=== PATIENT | female | born 1955 | race Caucasian/White ===

== ENCOUNTER 2021-01-17 11:18 | Inpatient (IN) | payer OTHER, MEDICAID, SELFPAY ==
[~2021-01-17] VITALS: Ht 154.9 cm; Wt 45.8 kg
[2021-01-17 11:20] VITALS: BP_SYST 125
[2021-01-17 12:10] LABS: BASOPHILS % (AUTO) 0.2 % (0.0-2.0); EOSINOPHILS % (AUTO) 0.1 % (0.0-4.0); HEMATOCRIT 42.9 % (36-48); HEMOGLOBIN 14.7 g/dL (12.0-16.0); LYMPHOCYTES % (AUTO) 6.3 % (20.5-51.5); MEAN CORPUSCULAR HEMOGLOBIN 33 pg (27-31); MEAN CORPUSCULAR HGB CONC 34 % (32-36); MEAN CORPUSCULAR VOLUME 96 fL (79.0-98.0); MONOCYTES # (AUTO) 1.8 K/uL (0.0-1.0); MONOCYTES % (AUTO) 11.2 % (1.7-9.3); NEUTROPHILS # (AUTO) 12.9 K/uL (1.8-7.7); NEUTROPHILS % (AUTO) 82.2 % (40.0-70.0); PLATELET COUNT (AUTO) 239 K/uL (130-430); RED BLOOD CELL COUNT(AUTO) 4.45 MIL/uL (4.2-6.2); RED CELL DISTRIBUTION WIDTH 14.3 % (9.0-15.0); WHITE BLOOD COUNT (AUTO) 15.7 K/uL (4.8-10.8)
[2021-01-17 12:13] LABS: BILIRUBIN,URINE NEGATIVE (NEGATIVE); BLOOD, URINE 2+ (NEGATIVE); CLARITY/URINE SL CLOUDY (CLEAR); COLOR,URINE YELLOW (YELLOW); GLUCOSE,URINE NEGATIVE (NEGATIVE); KETONES,URINE NEGATIVE (NEGATIVE); LEUKOCYTE ESTERASE ,URINE 3+ (NEGATIVE); NITRITE, URINE POSITIVE (NEGATIVE); PROTEIN URINE 2+ (NEGATIVE); UROBILINOGEN,URINE 0.2 (0.2-1.0)
[2021-01-17 12:26] LABS: CALCIUM 9.2 mg/dL (8.4-11.0)
[2021-01-17 12:30] LABS: ALBUMIN 3.7 g/dL (3.4-4.8); TOTAL BILIRUBIN 0.7 mg/dL (0.0-1.0)
[2021-01-17 12:34] LABS: POTASSIUM 2.7 mmol/L (3.5-5.1)
[2021-01-17 12:43] LABS: WBC,URINE 50-80 /HPF (0-3)
[2021-01-17 12:44] LABS: BACTERIA,URINE FEW /HPF (None Seen)
[2021-01-17] MEDS ORDERED: ONDANSETRON HCL 4 MG/2 ML VIAL IVP PRN (13:00)
[2021-01-17] MEDS ORDERED: ACETAMINOPHEN 325 MG TABLET PO PRN (13:00)
[2021-01-17] MEDS ORDERED: cefTRIAXone 1 GM in D5W 50 ML IV ONE (13:00)
[2021-01-17] MEDS ORDERED: KCL 20 mEq in 100 mL (PREMIX) 100 ML IV ONE (13:15)
[2021-01-17] MEDS ORDERED: MORPHINE 2 MG/ML INJ. SYRINGE IVP ONE (13:15)
[2021-01-17] MEDS ORDERED: POTASSIUM CHLORIDE 20 MEQ/PKT PACKET PO ONE (13:15)
[2021-01-17] MEDS ORDERED: cefTRIAXone 1 GM IVPB PREMIX 50 ML IV SCH (14:00)
[2021-01-17] MEDS: NORMAL SALINE 5 ML DISP.SYRIN IVF SCH ×4 (14:02→22:13)
[2021-01-17] MEDS: HYDROcodone/ACETAMIN 10-325 MG TAB PO PRN (19:57)
[2021-01-17] MEDS ORDERED: HYDR25TA4 PO (20:19)
[2021-01-17] MEDS ORDERED: CHOL200075 PO (20:19)
[2021-01-17] MEDS ORDERED: FLUT30CR (20:19)
[2021-01-17] MEDS ORDERED: PRAVASTATIN 20 MG PO (20:19)
[2021-01-17] MEDS ORDERED: MULT-1089 PO (20:19)
[2021-01-17] MEDS ORDERED: MEDI473O PO (20:19)
[2021-01-17] MEDS ORDERED: MAGN400T10 PO (20:19)
[2021-01-17] MEDS ORDERED: [UNRECOGNIZED DRUG - CODE] PO (20:19)
[2021-01-17] MEDS ORDERED: ASPI-1155 PO (20:19)
[2021-01-17] MEDS ORDERED: ASCO-420 PO (20:19)
[2021-01-17] MEDS ORDERED: CETI10CA PO (20:19)
[2021-01-17] MEDS ORDERED: UBID400C6 PO (20:19)
[2021-01-17 23:09] VITALS: BP_SYST 137
[2021-01-18 02:15] VITALS: BP_SYST 132
[2021-01-18] MEDS: HYDROcodone/ACETAMIN 10-325 MG TAB PO PRN ×4 (04:39→20:56)
[2021-01-18] MEDS: NORMAL SALINE 5 ML DISP.SYRIN IVF SCH ×6 (05:40→20:58)
[2021-01-18 07:50] LABS: BASOPHILS % (AUTO) 0.3 % (0.0-2.0); EOSINOPHILS % (AUTO) 0.2 % (0.0-4.0); HEMATOCRIT 35.1 % (36-48); LYMPHOCYTES # (AUTO) 1.1 K/uL (1.0-5.5); LYMPHOCYTES % (AUTO) 8.6 % (20.5-51.5); MEAN CORPUSCULAR HEMOGLOBIN 33 pg (27-31); MEAN CORPUSCULAR HGB CONC 34 % (32-36); MEAN CORPUSCULAR VOLUME 97 fL (79.0-98.0); MONOCYTES # (AUTO) 2.2 K/uL (0.0-1.0); MONOCYTES % (AUTO) 16.7 % (1.7-9.3); NEUTROPHILS # (AUTO) 9.8 K/uL (1.8-7.7); NEUTROPHILS % (AUTO) 74.2 % (40.0-70.0); PLATELET COUNT (AUTO) 220 K/uL (130-430); RED BLOOD CELL COUNT(AUTO) 3.62 MIL/uL (4.2-6.2); RED CELL DISTRIBUTION WIDTH 14.6 % (9.0-15.0); WHITE BLOOD COUNT (AUTO) 13.3 K/uL (4.8-10.8)
[2021-01-18 08:00] VITALS: BP_SYST 83
[2021-01-18 08:23] LABS: CALCIUM 8.4 mg/dL (8.4-11.0); CREATININE 0.83 mg/dL (0.55-1.30)
[2021-01-18 08:38] LABS: POTASSIUM 2.9 mmol/L (3.5-5.1)
[2021-01-18] MEDS ORDERED: POTASSIUM CHLORIDE 40 MEQ in NS 250 ML IV ONE (09:00)
[2021-01-18] MEDS: D5/0.45 NS 1,000 ML IV SCH ×2 (09:22→18:17)
[2021-01-18 12:48] VITALS: BP_SYST 121
[2021-01-18 12:58] VITALS: BP_SYST 94
[2021-01-18] MEDS: CEFTRIAXONE SOD 1 GM/ D5W 50 ML IV SCH ×2 (14:33)
[2021-01-18 16:45] VITALS: BP_SYST 108
[2021-01-18 20:00] VITALS: BP_SYST 109
[2021-01-19 00:37] VITALS: BP_SYST 110
[2021-01-19] MEDS: HYDROcodone/ACETAMIN 10-325 MG TAB PO PRN ×3 (03:33→20:35)
[2021-01-19] MEDS: D5/0.45 NS 1,000 ML IV SCH ×3 (03:34→22:44)
[2021-01-19] MEDS: NORMAL SALINE 5 ML DISP.SYRIN IVF SCH ×5 (05:25→22:43)
[2021-01-19 06:58] LABS: BASOPHILS # (AUTO) 0.1 K/uL (0.0-0.2); BASOPHILS % (AUTO) 0.6 % (0.0-2.0); EOSINOPHILS # (AUTO) 0.1 K/uL (0.0-0.4); EOSINOPHILS % (AUTO) 1.4 % (0.0-4.0); HEMATOCRIT 31.6 % (36-48); HEMOGLOBIN 10.9 g/dL (12.0-16.0); LYMPHOCYTES # (AUTO) 0.8 K/uL (1.0-5.5); LYMPHOCYTES % (AUTO) 8.3 % (20.5-51.5); MEAN CORPUSCULAR HEMOGLOBIN 33 pg (27-31); MEAN CORPUSCULAR HGB CONC 34 % (32-36); MEAN CORPUSCULAR VOLUME 97 fL (79.0-98.0); MONOCYTES # (AUTO) 1.2 K/uL (0.0-1.0); MONOCYTES % (AUTO) 13.3 % (1.7-9.3); NEUTROPHILS % (AUTO) 76.4 % (40.0-70.0); PLATELET COUNT (AUTO) 212 K/uL (130-430); RED BLOOD CELL COUNT(AUTO) 3.26 MIL/uL (4.2-6.2); RED CELL DISTRIBUTION WIDTH 14.5 % (9.0-15.0); WHITE BLOOD COUNT (AUTO) 9.2 K/uL (4.8-10.8)
[2021-01-19 07:53] VITALS: BP_SYST 96
[2021-01-19] MEDS: DOCUSATE SODIUM 100 MG CAPSULE PO SCH ×2 (08:10→08:13)
[2021-01-19 08:44] LABS: ALBUMIN 2.2 g/dL (3.4-4.8); CALCIUM 7.9 mg/dL (8.4-11.0); CREATININE 0.65 mg/dL (0.55-1.30); PHOSPHORUS 1.7 mg/dL (2.7-4.5); TOTAL BILIRUBIN 0.3 mg/dL (0.0-1.0)
[2021-01-19 09:22] LABS: POTASSIUM 2.5 mmol/L (3.5-5.1)
[2021-01-19 10:17] LABS: ERYTHROCYTE SEDIMENTATION RATE 67 MM/HR (0-20)
[2021-01-19 11:24] VITALS: BP_SYST 103
[2021-01-19 11:51] LABS: C-REACTIVE PROTEIN QUANT 16.3 mg/dL (0-0.5)
[2021-01-19] MEDS ORDERED: POTASSIUM CHLORIDE 40 MEQ, LIDOCAINE JECT 2% PF 100 MG 50 MG in NS 250 ML IV ONE (13:30)
[2021-01-19] MEDS: CEFTRIAXONE SOD 1 GM/ D5W 50 ML IV SCH ×2 (13:38)
[2021-01-19] MEDS ORDERED: SENNOSIDES/DOCUSATE SODIUM 1 TAB TABLET(SENOKOT-S) PO ONE (14:15)
[2021-01-19 15:21] VITALS: BP_SYST 100
[2021-01-19 20:00] VITALS: BP_SYST 115
[2021-01-20] VITALS: BP_SYST 89
[2021-01-20] MEDS ORDERED: NACL 0.9% 1,000 ML IV ONE (00:30)
[2021-01-20 01:53] VITALS: BP_SYST 105
[2021-01-20] MEDS: NORMAL SALINE 5 ML DISP.SYRIN IVF SCH ×3 (05:05→21:01)
[2021-01-20] MEDS: HYDROcodone/ACETAMIN 10-325 MG TAB PO PRN ×4 (05:40→22:54)
[2021-01-20 06:43] LABS: BASOPHILS # (AUTO) 0.1 K/uL (0.0-0.2); BASOPHILS % (AUTO) 0.7 % (0.0-2.0); EOSINOPHILS # (AUTO) 0.2 K/uL (0.0-0.4); EOSINOPHILS % (AUTO) 2.2 % (0.0-4.0); HEMATOCRIT 34.6 % (36-48); HEMOGLOBIN 11.8 g/dL (12.0-16.0); LYMPHOCYTES # (AUTO) 1.2 K/uL (1.0-5.5); LYMPHOCYTES % (AUTO) 14.5 % (20.5-51.5); MEAN CORPUSCULAR HEMOGLOBIN 33 pg (27-31); MEAN CORPUSCULAR HGB CONC 34 % (32-36); MEAN CORPUSCULAR VOLUME 97 fL (79.0-98.0); MONOCYTES # (AUTO) 1.1 K/uL (0.0-1.0); MONOCYTES % (AUTO) 13.7 % (1.7-9.3); NEUTROPHILS # (AUTO) 5.7 K/uL (1.8-7.7); NEUTROPHILS % (AUTO) 68.9 % (40.0-70.0); PLATELET COUNT (AUTO) 248 K/uL (130-430); RED BLOOD CELL COUNT(AUTO) 3.56 MIL/uL (4.2-6.2); RED CELL DISTRIBUTION WIDTH 14.9 % (9.0-15.0); WHITE BLOOD COUNT (AUTO) 8.3 K/uL (4.8-10.8)
[2021-01-20 07:49] LABS: CALCIUM 8.3 mg/dL (8.4-11.0); CREATININE 0.56 mg/dL (0.55-1.30)
[2021-01-20 08:00] VITALS: BP_SYST 97
[2021-01-20 08:22] LABS: POTASSIUM 2.8 mmol/L (3.5-5.1)
[2021-01-20 08:56] LABS: C-REACTIVE PROTEIN QUANT 11.6 mg/dL (0-0.5)
[2021-01-20 09:12] LABS: ERYTHROCYTE SEDIMENTATION RATE 67 MM/HR (0-20)
[2021-01-20] MEDS: DOCUSATE SODIUM 100 MG CAPSULE PO SCH ×2 (09:36→09:43)
[2021-01-20] MEDS: LORazepam 2 MG/ML VIAL IVP PRN ×2 (09:36→22:57)
[2021-01-20] MEDS: SENNOSIDES/DOCUSATE SODIUM 1 TAB TABLET(SENOKOT-S) PO SCH ×2 (09:36→09:44)
[2021-01-20] MEDS: CEFTRIAXONE SOD 1 GM/ D5W 50 ML IV SCH ×2 (14:00)
[2021-01-20] MEDS ORDERED: POTASSIUM CHLORIDE 40 MEQ, LIDOCAINE JECT 2% PF 100 MG 50 MG in NS 250 ML IV ONE (15:15)
[2021-01-20] MEDS: KCL 40mEq in D5/0.45NS 1000 mL 1,000 ML IV SCH (15:15)
[2021-01-20 16:00] VITALS: BP_SYST 98
[2021-01-20 21:00] VITALS: BP_SYST 128
[2021-01-21] MEDS: KCL 40mEq in D5/0.45NS 1000 mL 1,000 ML IV SCH ×3 (01:15→23:37)
[2021-01-21 05:00] VITALS: BP_SYST 118; BP_SYST 119
[2021-01-21] MEDS: NORMAL SALINE 5 ML DISP.SYRIN IVF SCH ×3 (05:41→20:22)
[2021-01-21 06:57] LABS: BASOPHILS # (AUTO) 0.1 K/uL (0.0-0.2); BASOPHILS % (AUTO) 0.9 % (0.0-2.0); EOSINOPHILS # (AUTO) 0.2 K/uL (0.0-0.4); HEMATOCRIT 36.3 % (36-48); HEMOGLOBIN 12.4 g/dL (12.0-16.0); LYMPHOCYTES # (AUTO) 1.7 K/uL (1.0-5.5); LYMPHOCYTES % (AUTO) 22.5 % (20.5-51.5); MEAN CORPUSCULAR HEMOGLOBIN 33 pg (27-31); MEAN CORPUSCULAR HGB CONC 34 % (32-36); MEAN CORPUSCULAR VOLUME 98 fL (79.0-98.0); MONOCYTES # (AUTO) 1.2 K/uL (0.0-1.0); MONOCYTES % (AUTO) 15.7 % (1.7-9.3); NEUTROPHILS # (AUTO) 4.4 K/uL (1.8-7.7); NEUTROPHILS % (AUTO) 57.9 % (40.0-70.0); PLATELET COUNT (AUTO) 330 K/uL (130-430); RED BLOOD CELL COUNT(AUTO) 3.72 MIL/uL (4.2-6.2); RED CELL DISTRIBUTION WIDTH 15.1 % (9.0-15.0); WHITE BLOOD COUNT (AUTO) 7.6 K/uL (4.8-10.8)
[2021-01-21 07:31] LABS: CALCIUM 8.3 mg/dL (8.4-11.0); CREATININE 0.57 mg/dL (0.55-1.30); PHOSPHORUS 2.5 mg/dL (2.7-4.5); POTASSIUM 3.4 mmol/L (3.5-5.1)
[2021-01-21 08:00] VITALS: BP_SYST 122
[2021-01-21 09:27] LABS: ERYTHROCYTE SEDIMENTATION RATE 70 MM/HR (0-20)
[2021-01-21 10:08] LABS: C-REACTIVE PROTEIN QUANT 8.4 mg/dL (0-0.5)
[2021-01-21] MEDS: HYDROcodone/ACETAMIN 10-325 MG TAB PO PRN ×2 (10:42→17:16)
[2021-01-21] MEDS ORDERED: PHENYLEPH/MINERAL OIL/PETROLAT 57 GM OINT.APPL TP PRN (12:30)
[2021-01-21] MEDS ORDERED: POTASSIUM CHLORIDE 20 MEQ/PKT PACKET PO ONE (12:30)
[2021-01-21] MEDS ORDERED: HYDROCORTISONE ACETATE 1 SUPP (ANUSOL HC) RC ONE (12:30)
[2021-01-21] MEDS: LORazepam 2 MG/ML VIAL IVP PRN ×2 (15:06→21:07)
[2021-01-21] MEDS: CEFTRIAXONE SOD 1 GM/ D5W 50 ML IV SCH ×2 (15:07)
[2021-01-21 16:00] VITALS: BP_SYST 118
[2021-01-21 20:00] VITALS: BP_SYST 108
[2021-01-21] MEDS: HYDROCORTISONE ACETATE 1 SUPP (ANUSOL HC) RC SCH (20:22)
[2021-01-22] VITALS: BP_SYST 146
[2021-01-22] MEDS: HYDROcodone/ACETAMIN 10-325 MG TAB PO PRN ×3 (00:35→15:58)
[2021-01-22] MEDS: LORazepam 2 MG/ML VIAL IVP PRN ×4 (04:48→22:38)
[2021-01-22] MEDS: NORMAL SALINE 5 ML DISP.SYRIN IVF SCH ×3 (06:03→21:28)
[2021-01-22 08:00] VITALS: BP_SYST 122
[2021-01-22 08:04] LABS: BASOPHILS # (AUTO) 0.1 K/uL (0.0-0.2); BASOPHILS % (AUTO) 0.8 % (0.0-2.0); EOSINOPHILS # (AUTO) 0.2 K/uL (0.0-0.4); EOSINOPHILS % (AUTO) 2.4 % (0.0-4.0); HEMATOCRIT 36.4 % (36-48); HEMOGLOBIN 12.6 g/dL (12.0-16.0); LYMPHOCYTES # (AUTO) 2.3 K/uL (1.0-5.5); LYMPHOCYTES % (AUTO) 23.2 % (20.5-51.5); MEAN CORPUSCULAR HEMOGLOBIN 33 pg (27-31); MEAN CORPUSCULAR HGB CONC 35 % (32-36); MEAN CORPUSCULAR VOLUME 97 fL (79.0-98.0); MONOCYTES # (AUTO) 1.3 K/uL (0.0-1.0); NEUTROPHILS % (AUTO) 60.6 % (40.0-70.0); PLATELET COUNT (AUTO) 433 K/uL (130-430); RED BLOOD CELL COUNT(AUTO) 3.77 MIL/uL (4.2-6.2)
[2021-01-22 08:18] LABS: ALBUMIN 2.7 g/dL (3.4-4.8); CALCIUM 8.7 mg/dL (8.4-11.0); CREATININE 0.57 mg/dL (0.55-1.30); PHOSPHORUS 3.6 mg/dL (2.7-4.5); POTASSIUM 3.2 mmol/L (3.5-5.1); TOTAL BILIRUBIN 0.2 mg/dL (0.0-1.0)
[2021-01-22] MEDS: SENNOSIDES/DOCUSATE SODIUM 1 TAB TABLET(SENOKOT-S) PO SCH (10:02)
[2021-01-22] MEDS: DOCUSATE SODIUM 100 MG CAPSULE PO SCH (10:05)
[2021-01-22] MEDS: HYDROcodone/ACETAMIN 5-325 MG TAB (NORCO/ VICODIN) PO PRN ×2 (10:05→21:27)
[2021-01-22] MEDS: HYDROCORTISONE ACETATE 1 SUPP (ANUSOL HC) RC SCH ×2 (10:06→21:26)
[2021-01-22] MEDS ORDERED: PHENYLEPH/MINERAL OIL/PETROLAT 57 GM OINT.APPL TP ONE (10:30)
[2021-01-22] MEDS: WITCH HAZEL LEAF 1 MED.PAD MED.PAD TP PRN (11:16)
[2021-01-22] MEDS ORDERED: POTASSIUM CHLORIDE 20 MEQ TAB.PRT.SR PO ONE (11:45)
[2021-01-22 12:00] VITALS: BP_SYST 121
[2021-01-22] MEDS ORDERED: TOPI200T PO (13:58)
[2021-01-22] MEDS ORDERED: LEVO25TA7 PO (13:58)
[2021-01-22] MEDS: CEFTRIAXONE SOD 1 GM/ D5W 50 ML IV SCH ×2 (14:11)
[2021-01-22 16:00] VITALS: BP_SYST 119
[2021-01-22 20:00] VITALS: BP_SYST 127
[2021-01-22] MEDS ORDERED: PHENYLEPH/MINERAL OIL/PETROLAT 57 GM OINT.APPL TP SCH (21:00)
[2021-01-22] MEDS: KCL 40mEq in D5/0.45NS 1000 mL 1,000 ML IV SCH (21:26)
[2021-01-23 00:36] VITALS: BP_SYST 118
[2021-01-23] MEDS: LORazepam 2 MG/ML VIAL IVP PRN ×3 (04:30→17:20)
[2021-01-23] MEDS: LEVOTHYROXINE SODIUM 0.025 MG TABLET PO SCH (06:20)
[2021-01-23] MEDS: NORMAL SALINE 5 ML DISP.SYRIN IVF SCH ×3 (06:20→22:10)
[2021-01-23 06:28] LABS: ALBUMIN 2.1 g/dL (3.4-4.8); C-REACTIVE PROTEIN QUANT 2.4 mg/dL (0-0.5); CALCIUM 8.3 mg/dL (8.4-11.0); CREATININE 0.57 mg/dL (0.55-1.30); PHOSPHORUS 3.1 mg/dL (2.7-4.5); POTASSIUM 3.8 mmol/L (3.5-5.1); TOTAL BILIRUBIN 0.1 mg/dL (0.0-1.0)
[2021-01-23 06:29] LABS: BASOPHILS # (AUTO) 0.1 K/uL (0.0-0.2); BASOPHILS % (AUTO) 0.8 % (0.0-2.0); EOSINOPHILS # (AUTO) 0.2 K/uL (0.0-0.4); EOSINOPHILS % (AUTO) 2.6 % (0.0-4.0); HEMATOCRIT 32.9 % (36-48); LYMPHOCYTES # (AUTO) 1.9 K/uL (1.0-5.5); LYMPHOCYTES % (AUTO) 21.5 % (20.5-51.5); MEAN CORPUSCULAR HEMOGLOBIN 33 pg (27-31); MEAN CORPUSCULAR HGB CONC 34 % (32-36); MEAN CORPUSCULAR VOLUME 99 fL (79.0-98.0); NEUTROPHILS # (AUTO) 5.4 K/uL (1.8-7.7); NEUTROPHILS % (AUTO) 63.1 % (40.0-70.0); PLATELET COUNT (AUTO) 480 K/uL (130-430); RED BLOOD CELL COUNT(AUTO) 3.34 MIL/uL (4.2-6.2); WHITE BLOOD COUNT (AUTO) 8.6 K/uL (4.8-10.8)
[2021-01-23] MEDS: KCL 40mEq in D5/0.45NS 1000 mL 1,000 ML IV SCH (07:51)
[2021-01-23] MEDS: HYDROCORTISONE ACETATE 1 SUPP (ANUSOL HC) RC SCH (09:00)
[2021-01-23 10:00] VITALS: BP_SYST 152
[2021-01-23] MEDS: DOCUSATE SODIUM 100 MG CAPSULE PO SCH (10:14)
[2021-01-23] MEDS: SENNOSIDES/DOCUSATE SODIUM 1 TAB TABLET(SENOKOT-S) PO SCH (10:14)
[2021-01-23] MEDS: MAGNESIUM OXIDE 400 MG TABLET PO SCH (10:15)
[2021-01-23] MEDS: ASPIRIN 81 MG TAB.CHEW PO SCH (10:15)
[2021-01-23] MEDS: HYDROCHLOROTHIAZIDE 25 MG TABLET (HCTZ) PO SCH (10:15)
[2021-01-23] MEDS: MULTIVITAMINS TAB 1 TABLET PO SCH (10:15)
[2021-01-23] MEDS: TOPIRAMATE 100 MG TABLET(Topamax) PO SCH (10:16)
[2021-01-23 11:17] LABS: ERYTHROCYTE SEDIMENTATION RATE 41 MM/HR (0-20)
[2021-01-23 12:45] VITALS: BP_SYST 117
[2021-01-23] MEDS: CEFTRIAXONE SOD 1 GM/ D5W 50 ML IV SCH ×2 (14:30)
[2021-01-23 16:05] VITALS: BP_SYST 118
[2021-01-23] MEDS ORDERED: PHENYLEPH/MINERAL OIL/PETROLAT 57 GM OINT.APPL TP PRN (16:15)
[2021-01-23] MEDS ORDERED: NALOXONE HCL 0.4 MG/ML AMP (NARCAN) IVP PRN (19:30)
[2021-01-23 20:00] VITALS: BP_SYST 127
[2021-01-23] MEDS: PHENYLEPH/MINERAL OIL/PETROLAT 57 GM OINT.APPL TP SCH (21:00)
[2021-01-23] MEDS: HYDROmorphone 2 MG TAB PO PRN (22:41)
[2021-01-24] VITALS: BP_SYST 119
[2021-01-24] MEDS: LORazepam 2 MG/ML VIAL IVP PRN ×4 (01:29→21:35)
[2021-01-24] MEDS: LEVOTHYROXINE SODIUM 0.025 MG TABLET PO SCH (06:43)
[2021-01-24] MEDS: NORMAL SALINE 5 ML DISP.SYRIN IVF SCH ×3 (06:43→21:47)
[2021-01-24 07:36] LABS: BASOPHILS # (AUTO) 0.1 K/uL (0.0-0.2); BASOPHILS % (AUTO) 0.8 % (0.0-2.0); EOSINOPHILS # (AUTO) 0.2 K/uL (0.0-0.4); EOSINOPHILS % (AUTO) 1.9 % (0.0-4.0); HEMATOCRIT 35.6 % (36-48); HEMOGLOBIN 12.2 g/dL (12.0-16.0); LYMPHOCYTES # (AUTO) 2.4 K/uL (1.0-5.5); MEAN CORPUSCULAR HEMOGLOBIN 33 pg (27-31); MEAN CORPUSCULAR HGB CONC 34 % (32-36); MEAN CORPUSCULAR VOLUME 97 fL (79.0-98.0); MONOCYTES # (AUTO) 1.1 K/uL (0.0-1.0); MONOCYTES % (AUTO) 11.8 % (1.7-9.3); NEUTROPHILS # (AUTO) 5.6 K/uL (1.8-7.7); NEUTROPHILS % (AUTO) 59.5 % (40.0-70.0); PLATELET COUNT (AUTO) 541 K/uL (130-430); RED BLOOD CELL COUNT(AUTO) 3.68 MIL/uL (4.2-6.2); RED CELL DISTRIBUTION WIDTH 15.3 % (9.0-15.0); WHITE BLOOD COUNT (AUTO) 9.4 K/uL (4.8-10.8)
[2021-01-24 08:24] VITALS: BP_SYST 118
[2021-01-24] MEDS: PHENYLEPH/MINERAL OIL/PETROLAT 57 GM OINT.APPL TP SCH ×2 (09:00→21:00)
[2021-01-24 09:10] LABS: CALCIUM 9.1 mg/dL (8.4-11.0); CREATININE 0.68 mg/dL (0.55-1.30); POTASSIUM 3.3 mmol/L (3.5-5.1)
[2021-01-24] MEDS: ASPIRIN 81 MG TAB.CHEW PO SCH (09:23)
[2021-01-24] MEDS: TOPIRAMATE 100 MG TABLET(Topamax) PO SCH (09:23)
[2021-01-24] MEDS: MULTIVITAMINS TAB 1 TABLET PO SCH (09:23)
[2021-01-24] MEDS: MAGNESIUM OXIDE 400 MG TABLET PO SCH (09:23)
[2021-01-24] MEDS: DOCUSATE SODIUM 100 MG CAPSULE PO SCH (09:23)
[2021-01-24] MEDS: SENNOSIDES/DOCUSATE SODIUM 1 TAB TABLET(SENOKOT-S) PO SCH (09:24)
[2021-01-24] MEDS: HYDROCHLOROTHIAZIDE 25 MG TABLET (HCTZ) PO SCH (09:24)
[2021-01-24] MEDS: HYDROmorphone 2 MG TAB PO PRN ×3 (10:14→23:45)
[2021-01-24 11:11] LABS: C-REACTIVE PROTEIN QUANT 1.5 mg/dL (0-0.5)
[2021-01-24 12:00] VITALS: BP_SYST 122
[2021-01-24] MEDS ORDERED: POTASSIUM CHLORIDE 20 MEQ TAB.PRT.SR PO ONE (13:15)
[2021-01-24] MEDS: CEFTRIAXONE SOD 1 GM/ D5W 50 ML IV SCH ×2 (14:45)
[2021-01-24] MEDS: PSYLLIUM HUSK 1 PKT PACKET PO SCH ×3 (14:49→21:13)
[2021-01-24 15:23] LABS: ERYTHROCYTE SEDIMENTATION RATE 2 MM/HR (0-20)
[2021-01-24 16:25] VITALS: BP_SYST 115
[2021-01-24 20:00] VITALS: BP_SYST 113
[2021-01-24] MEDS: HYDROCORTISONE 2.5%, 30 GM TOPICAL CREAM TP SCH (21:00)
[2021-01-24] MEDS: LIDOCAINE TOPICAL OINT 5%, 35 GM TP PRN (21:13)
[2021-01-24] MEDS: HYDROCORTISONE ACETATE 1 SUPP (ANUSOL HC) RC SCH (21:13)
[2021-01-25] VITALS: BP_SYST 100
[2021-01-25] MEDS: HYDROmorphone 2 MG TAB PO PRN ×4 (04:52→22:53)
[2021-01-25] MEDS: LORazepam 2 MG/ML VIAL IVP PRN ×3 (06:36→20:11)
[2021-01-25] MEDS: LEVOTHYROXINE SODIUM 0.025 MG TABLET PO SCH (06:36)
[2021-01-25] MEDS: NORMAL SALINE 5 ML DISP.SYRIN IVF SCH ×3 (07:05→22:00)
[2021-01-25 07:38] LABS: BASOPHILS # (AUTO) 0.1 K/uL (0.0-0.2); BASOPHILS % (AUTO) 1.1 % (0.0-2.0); EOSINOPHILS # (AUTO) 0.2 K/uL (0.0-0.4); HEMATOCRIT 35.8 % (36-48); HEMOGLOBIN 12.2 g/dL (12.0-16.0); LYMPHOCYTES # (AUTO) 2.1 K/uL (1.0-5.5); LYMPHOCYTES % (AUTO) 20.5 % (20.5-51.5); MEAN CORPUSCULAR HEMOGLOBIN 33 pg (27-31); MEAN CORPUSCULAR HGB CONC 34 % (32-36); MEAN CORPUSCULAR VOLUME 97 fL (79.0-98.0); MONOCYTES # (AUTO) 0.9 K/uL (0.0-1.0); MONOCYTES % (AUTO) 8.5 % (1.7-9.3); NEUTROPHILS # (AUTO) 6.8 K/uL (1.8-7.7); NEUTROPHILS % (AUTO) 67.9 % (40.0-70.0); PLATELET COUNT (AUTO) 584 K/uL (130-430); RED BLOOD CELL COUNT(AUTO) 3.68 MIL/uL (4.2-6.2); RED CELL DISTRIBUTION WIDTH 15.2 % (9.0-15.0); WHITE BLOOD COUNT (AUTO) 10.1 K/uL (4.8-10.8)
[2021-01-25 08:00] VITALS: BP_SYST 109
[2021-01-25 08:53] LABS: CALCIUM 9.1 mg/dL (8.4-11.0); CREATININE 0.71 mg/dL (0.55-1.30); POTASSIUM 4.3 mmol/L (3.5-5.1)
[2021-01-25] MEDS: PSYLLIUM HUSK 1 PKT PACKET PO SCH ×3 (09:00→21:00)
[2021-01-25] MEDS: PHENYLEPH/MINERAL OIL/PETROLAT 57 GM OINT.APPL TP SCH ×2 (09:00→21:00)
[2021-01-25] MEDS: DOCUSATE SODIUM 100 MG CAPSULE PO SCH (09:38)
[2021-01-25] MEDS: ASPIRIN 81 MG TAB.CHEW PO SCH (09:38)
[2021-01-25] MEDS: TOPIRAMATE 100 MG TABLET(Topamax) PO SCH (09:38)
[2021-01-25] MEDS: SENNOSIDES/DOCUSATE SODIUM 1 TAB TABLET(SENOKOT-S) PO SCH (09:38)
[2021-01-25] MEDS: MAGNESIUM OXIDE 400 MG TABLET PO SCH (09:38)
[2021-01-25] MEDS: MULTIVITAMINS TAB 1 TABLET PO SCH (09:38)
[2021-01-25] MEDS: HYDROCORTISONE ACETATE 1 SUPP (ANUSOL HC) RC SCH ×2 (09:39→20:12)
[2021-01-25] MEDS: HYDROCHLOROTHIAZIDE 25 MG TABLET (HCTZ) PO SCH (09:39)
[2021-01-25 10:26] LABS: ERYTHROCYTE SEDIMENTATION RATE 47 MM/HR (0-20)
[2021-01-25 11:27] LABS: C-REACTIVE PROTEIN QUANT 1.2 mg/dL (0-0.5)
[2021-01-25 12:00] VITALS: BP_SYST 113
[2021-01-25] MEDS: CEFTRIAXONE SOD 1 GM/ D5W 50 ML IV SCH ×2 (15:12)
[2021-01-25 17:54] VITALS: BP_SYST 120
[2021-01-25] MEDS: LIDOCAINE TOPICAL OINT 5%, 35 GM TP PRN (20:12)
[2021-01-25] MEDS: HYDROCORTISONE 2.5%, 30 GM TOPICAL CREAM TP SCH (21:00)
[2021-01-26 00:40] VITALS: BP_SYST 130
[2021-01-26] MEDS: LORazepam 2 MG/ML VIAL IVP PRN ×3 (02:44→20:32)
[2021-01-26] MEDS: LEVOTHYROXINE SODIUM 0.025 MG TABLET PO SCH (06:06)
[2021-01-26] MEDS: HYDROmorphone 2 MG TAB PO PRN ×2 (06:07→22:09)
[2021-01-26] MEDS: NORMAL SALINE 5 ML DISP.SYRIN IVF SCH ×3 (06:11→20:33)
[2021-01-26 07:46] LABS: BASOPHILS # (AUTO) 0.1 K/uL (0.0-0.2); EOSINOPHILS # (AUTO) 0.2 K/uL (0.0-0.4); EOSINOPHILS % (AUTO) 1.8 % (0.0-4.0); HEMATOCRIT 36.8 % (36-48); HEMOGLOBIN 12.6 g/dL (12.0-16.0); LYMPHOCYTES # (AUTO) 2.1 K/uL (1.0-5.5); LYMPHOCYTES % (AUTO) 21.3 % (20.5-51.5); MEAN CORPUSCULAR HEMOGLOBIN 33 pg (27-31); MEAN CORPUSCULAR HGB CONC 34 % (32-36); MEAN CORPUSCULAR VOLUME 97 fL (79.0-98.0); MONOCYTES # (AUTO) 0.9 K/uL (0.0-1.0); MONOCYTES % (AUTO) 8.7 % (1.7-9.3); NEUTROPHILS # (AUTO) 6.8 K/uL (1.8-7.7); NEUTROPHILS % (AUTO) 67.2 % (40.0-70.0); PLATELET COUNT (AUTO) 640 K/uL (130-430); RED BLOOD CELL COUNT(AUTO) 3.78 MIL/uL (4.2-6.2); RED CELL DISTRIBUTION WIDTH 15.3 % (9.0-15.0)
[2021-01-26 08:05] LABS: ALBUMIN 2.9 g/dL (3.4-4.8); CALCIUM 9.4 mg/dL (8.4-11.0); CREATININE 0.82 mg/dL (0.55-1.30); POTASSIUM 3.4 mmol/L (3.5-5.1); TOTAL BILIRUBIN 0.2 mg/dL (0.0-1.0)
[2021-01-26 08:09] LABS: INR 0.9 (0.8-1.2); PROTHROMBIN TIME 9.8 SECS (9.5-12.5)
[2021-01-26 08:15] VITALS: BP_SYST 112
[2021-01-26] MEDS: HYDROCHLOROTHIAZIDE 25 MG TABLET (HCTZ) PO SCH (09:00)
[2021-01-26] MEDS: HYDROCORTISONE ACETATE 1 SUPP (ANUSOL HC) RC SCH ×2 (09:00→20:32)
[2021-01-26] MEDS: TOPIRAMATE 100 MG TABLET(Topamax) PO SCH (09:00)
[2021-01-26] MEDS: PSYLLIUM HUSK 1 PKT PACKET PO SCH ×3 (09:00→20:31)
[2021-01-26] MEDS: SENNOSIDES/DOCUSATE SODIUM 1 TAB TABLET(SENOKOT-S) PO SCH (09:00)
[2021-01-26] MEDS: MAGNESIUM OXIDE 400 MG TABLET PO SCH (09:00)
[2021-01-26] MEDS: DOCUSATE SODIUM 100 MG CAPSULE PO SCH (09:00)
[2021-01-26] MEDS: ASPIRIN 81 MG TAB.CHEW PO SCH (09:00)
[2021-01-26] MEDS: PHENYLEPH/MINERAL OIL/PETROLAT 57 GM OINT.APPL TP SCH ×2 (09:00→20:32)
[2021-01-26] MEDS: MULTIVITAMINS TAB 1 TABLET PO SCH (09:00)
[2021-01-26 10:29] LABS: C-REACTIVE PROTEIN QUANT 0.7 mg/dL (0-0.5)
[2021-01-26 11:39] LABS: ERYTHROCYTE SEDIMENTATION RATE 38 MM/HR (0-20)
[2021-01-26 12:00] VITALS: BP_SYST 121
[2021-01-26 12:21] LABS: HCG,QUAL RESULT NEGATIVE (NEGATIVE)
[2021-01-26] MEDS ORDERED: POTASSIUM CHLORIDE 20 MEQ TAB.PRT.SR PO ONE (13:30)
[2021-01-26] MEDS ORDERED: PROPOFOL 200MG/ 20ML VIAL (DIPRIVAN) IV ONE (13:40)
[2021-01-26] MEDS ORDERED: MIDAZOLAM HCL 5 MG/5 ML VIAL IVP ONE (13:40)
[2021-01-26] MEDS ORDERED: DEXAMETHASONE SOD PHOSPHATE 4 MG/ML VIAL IVP ONE (13:40)
[2021-01-26] MEDS ORDERED: SUGAMMADEX SODIUM 200 MG/2 ML VIAL IV ONE (13:40)
[2021-01-26] MEDS ORDERED: DESFLURANE 15 MIN GAS INH ONE (13:40)
[2021-01-26] MEDS ORDERED: LR 1,000 ML IV.SOLN IV ONE (13:40)
[2021-01-26] MEDS ORDERED: LIDOCAINE 1% 10 MG/ML, 20 ML MDV INJ ONE (13:40)
[2021-01-26] MEDS ORDERED: ONDANSETRON HCL 4 MG/2 ML VIAL IVP ONE (13:40)
[2021-01-26] MEDS ORDERED: fentaNYL CITRATE/PF 100 MCG/2 ML AMP IVP ONE (13:40)
[2021-01-26] MEDS ORDERED: ROCURONIUM BROMIDE 10 MG/ML (ZEMURON) IV ONE (13:40)
[2021-01-26] MEDS ORDERED: BUPIVACAINE /EPINEPHRINE/PF 0.25% 30 ML VIAL INJ ONE (13:40)
[2021-01-26] MEDS ORDERED: WATER FOR IRRIGATION,STERILE 1,000 ML IRRIG.SOLN IR ONE (13:40)
[2021-01-26] MEDS ORDERED: LR 1,000 ML IV SCH (14:30)
[2021-01-26] MEDS ORDERED: METOCLOPRAMIDE HCL 10 MG/2 ML VIAL IVP PRN (14:30)
[2021-01-26] MEDS ORDERED: MEPERIDINE HCL/PF 25 MG/ML DISP.SYRIN IVP PRN (14:30)
[2021-01-26] MEDS ORDERED: HYDROmorphone 1 MG/ML INJ. CARTRIDGE IVP PRN ×2 (14:30)
[2021-01-26] MEDS: MIDAZOLAM HCL 2 MG/2 ML VIAL (VERSED) IVP PRN (14:55)
[2021-01-26] MEDS ORDERED: MIDAZOLAM HCL 2 MG/2 ML VIAL (VERSED) ONE (15:06)
[2021-01-26] MEDS ORDERED: HYDROmorphone 2 MG/ML VIAL ONE (15:58)
[2021-01-26 16:45] VITALS: BP_SYST 117
[2021-01-26] MEDS: CEFTRIAXONE SOD 1 GM/ D5W 50 ML IV SCH ×2 (16:56)
[2021-01-26] MEDS ORDERED: POTASSIUM CHLORIDE 10 MEQ TAB.PRT.SR PO ONE (17:30)
[2021-01-26 17:58] LABS: CALCIUM 9.3 mg/dL (8.4-11.0); CREATININE 0.83 mg/dL (0.55-1.30); POTASSIUM 3.4 mmol/L (3.5-5.1)
[2021-01-26 20:00] VITALS: BP_SYST 110
[2021-01-26] MEDS: HYDROCORTISONE 2.5%, 30 GM TOPICAL CREAM TP SCH (20:33)
[2021-01-27] VITALS: BP_SYST 144
[2021-01-27] MEDS: HYDROcodone/ACETAMIN 10-325 MG TAB PO PRN (00:58)
[2021-01-27] MEDS: LORazepam 2 MG/ML VIAL IVP PRN ×4 (00:58→21:11)
[2021-01-27] MEDS: LIDOCAINE TOPICAL OINT 5%, 35 GM TP PRN ×3 (00:59→21:21)
[2021-01-27] MEDS: HYDROmorphone 2 MG TAB PO PRN ×2 (06:16→12:59)
[2021-01-27] MEDS: LEVOTHYROXINE SODIUM 0.025 MG TABLET PO SCH (06:16)
[2021-01-27] MEDS: NORMAL SALINE 5 ML DISP.SYRIN IVF SCH ×3 (06:17→21:03)
[2021-01-27 06:37] LABS: BASOPHILS # (AUTO) 0.1 K/uL (0.0-0.2); BASOPHILS % (AUTO) 0.5 % (0.0-2.0); EOSINOPHILS # (AUTO) 0.1 K/uL (0.0-0.4); EOSINOPHILS % (AUTO) 0.5 % (0.0-4.0); HEMATOCRIT 35.2 % (36-48); HEMOGLOBIN 12.1 g/dL (12.0-16.0); LYMPHOCYTES % (AUTO) 11.5 % (20.5-51.5); MEAN CORPUSCULAR HEMOGLOBIN 33 pg (27-31); MEAN CORPUSCULAR HGB CONC 34 % (32-36); MEAN CORPUSCULAR VOLUME 97 fL (79.0-98.0); MONOCYTES # (AUTO) 1.2 K/uL (0.0-1.0); NEUTROPHILS % (AUTO) 80.5 % (40.0-70.0); PLATELET COUNT (AUTO) 685 K/uL (130-430); RED BLOOD CELL COUNT(AUTO) 3.63 MIL/uL (4.2-6.2); RED CELL DISTRIBUTION WIDTH 15.1 % (9.0-15.0); WHITE BLOOD COUNT (AUTO) 17.4 K/uL (4.8-10.8)
[2021-01-27 06:40] LABS: C-REACTIVE PROTEIN QUANT 0.7 mg/dL (0-0.5); CALCIUM 9.1 mg/dL (8.4-11.0); CREATININE 0.76 mg/dL (0.55-1.30); PHOSPHORUS 3.1 mg/dL (2.7-4.5); POTASSIUM 3.3 mmol/L (3.5-5.1)
[2021-01-27 08:05] VITALS: BP_SYST 132
[2021-01-27 09:04] LABS: ERYTHROCYTE SEDIMENTATION RATE 35 MM/HR (0-20)
[2021-01-27] MEDS: TOPIRAMATE 100 MG TABLET(Topamax) PO SCH (09:04)
[2021-01-27] MEDS: MULTIVITAMINS TAB 1 TABLET PO SCH (09:04)
[2021-01-27] MEDS: DOCUSATE SODIUM 100 MG CAPSULE PO SCH (09:05)
[2021-01-27] MEDS: PHENYLEPH/MINERAL OIL/PETROLAT 57 GM OINT.APPL TP SCH ×2 (09:05→21:00)
[2021-01-27] MEDS: PSYLLIUM HUSK 1 PKT PACKET PO SCH ×3 (09:05→21:02)
[2021-01-27] MEDS: ASPIRIN 81 MG TAB.CHEW PO SCH (09:05)
[2021-01-27] MEDS: SENNOSIDES/DOCUSATE SODIUM 1 TAB TABLET(SENOKOT-S) PO SCH (09:05)
[2021-01-27] MEDS: MAGNESIUM OXIDE 400 MG TABLET PO SCH (09:05)
[2021-01-27] MEDS: HYDROCHLOROTHIAZIDE 25 MG TABLET (HCTZ) PO SCH (09:08)
[2021-01-27] MEDS: HYDROCORTISONE ACETATE 1 SUPP (ANUSOL HC) RC SCH ×2 (09:09→21:03)
[2021-01-27 12:17] VITALS: BP_SYST 118
[2021-01-27 16:03] VITALS: BP_SYST 122
[2021-01-27] MEDS ORDERED: ANURH RC (17:01)
[2021-01-27] MEDS ORDERED: DOCU-144 PO (17:01)
[2021-01-27] MEDS ORDERED: HYDR-3927 PO (17:01)
[2021-01-27] MEDS ORDERED: HYDC2.5% TP (17:01)
[2021-01-27] MEDS ORDERED: PSYL3.4P5 PO (17:01)
[2021-01-27] MEDS ORDERED: LIDOINT TP (17:01)
[2021-01-27] MEDS ORDERED: PHEN57OI23 TP (17:01)
[2021-01-27] MEDS ORDERED: HYDR2TAB7 PO (17:01)
[2021-01-27 18:30] VITALS: BP_SYST 122
[2021-01-27 20:51] LABS: BILIRUBIN,URINE NEGATIVE (NEGATIVE); BLOOD, URINE NEGATIVE (NEGATIVE); COLOR,URINE YELLOW (YELLOW); GLUCOSE,URINE NEGATIVE (NEGATIVE); KETONES,URINE NEGATIVE (NEGATIVE); LEUKOCYTE ESTERASE ,URINE NEGATIVE (NEGATIVE); NITRITE, URINE NEGATIVE (NEGATIVE); PH,URINE 7.5 (5.0-8.0); PROTEIN URINE NEGATIVE (NEGATIVE); UROBILINOGEN,URINE 0.2 (0.2-1.0)
[2021-01-27 20:58] VITALS: BP_SYST 130
[2021-01-27] MEDS: HYDROCORTISONE 2.5%, 30 GM TOPICAL CREAM TP SCH (21:00)
[2021-01-27 21:32] LABS: CLARITY/URINE SLIGHTLY HAZY (CLEAR)
[2021-01-28 02:00] VITALS: BP_SYST 117
[2021-01-28] MEDS: LORazepam 2 MG/ML VIAL IVP PRN ×4 (03:42→22:01)
[2021-01-28] MEDS: NORMAL SALINE 5 ML DISP.SYRIN IVF SCH ×3 (05:51→22:05)
[2021-01-28] MEDS: LEVOTHYROXINE SODIUM 0.025 MG TABLET PO SCH (05:53)
[2021-01-28 06:58] LABS: BASOPHILS # (AUTO) 0.1 K/uL (0.0-0.2); BASOPHILS % (AUTO) 0.6 % (0.0-2.0); EOSINOPHILS # (AUTO) 0.1 K/uL (0.0-0.4); EOSINOPHILS % (AUTO) 0.8 % (0.0-4.0); HEMATOCRIT 35.8 % (36-48); HEMOGLOBIN 12.3 g/dL (12.0-16.0); LYMPHOCYTES # (AUTO) 2.2 K/uL (1.0-5.5); LYMPHOCYTES % (AUTO) 14.3 % (20.5-51.5); MEAN CORPUSCULAR HEMOGLOBIN 33 pg (27-31); MEAN CORPUSCULAR HGB CONC 35 % (32-36); MEAN CORPUSCULAR VOLUME 97 fL (79.0-98.0); MONOCYTES # (AUTO) 1.3 K/uL (0.0-1.0); MONOCYTES % (AUTO) 8.4 % (1.7-9.3); NEUTROPHILS # (AUTO) 11.5 K/uL (1.8-7.7); NEUTROPHILS % (AUTO) 75.9 % (40.0-70.0); PLATELET COUNT (AUTO) 718 K/uL (130-430); RED BLOOD CELL COUNT(AUTO) 3.69 MIL/uL (4.2-6.2); RED CELL DISTRIBUTION WIDTH 15.2 % (9.0-15.0); WHITE BLOOD COUNT (AUTO) 15.2 K/uL (4.8-10.8)
[2021-01-28 07:56] LABS: ALBUMIN 3.2 g/dL (3.4-4.8); CALCIUM 9.5 mg/dL (8.4-11.0); CREATININE 0.7 mg/dL (0.55-1.30); POTASSIUM 3.3 mmol/L (3.5-5.1); TOTAL BILIRUBIN 0.2 mg/dL (0.0-1.0)
[2021-01-28] MEDS: SENNOSIDES/DOCUSATE SODIUM 1 TAB TABLET(SENOKOT-S) PO SCH (08:34)
[2021-01-28] MEDS: MULTIVITAMINS TAB 1 TABLET PO SCH (08:34)
[2021-01-28] MEDS: TOPIRAMATE 100 MG TABLET(Topamax) PO SCH (08:34)
[2021-01-28 08:35] VITALS: BP_SYST 115
[2021-01-28] MEDS: DOCUSATE SODIUM 100 MG CAPSULE PO SCH (08:35)
[2021-01-28] MEDS: ASPIRIN 81 MG TAB.CHEW PO SCH (08:35)
[2021-01-28] MEDS: PHENYLEPH/MINERAL OIL/PETROLAT 57 GM OINT.APPL TP SCH ×2 (08:35→21:00)
[2021-01-28] MEDS: MAGNESIUM OXIDE 400 MG TABLET PO SCH (08:35)
[2021-01-28] MEDS: PSYLLIUM HUSK 1 PKT PACKET PO SCH ×3 (08:36→22:00)
[2021-01-28] MEDS: HYDROCORTISONE ACETATE 1 SUPP (ANUSOL HC) RC SCH ×2 (08:36→21:58)
[2021-01-28] MEDS: HYDROCHLOROTHIAZIDE 25 MG TABLET (HCTZ) PO SCH (08:40)
[2021-01-28 09:19] LABS: ERYTHROCYTE SEDIMENTATION RATE 58 MM/HR (0-20)
[2021-01-28 09:57] LABS: C-REACTIVE PROTEIN QUANT 3.9 mg/dL (0-0.5)
[2021-01-28 12:00] VITALS: BP_SYST 112
[2021-01-28] MEDS ORDERED: POTASSIUM CHLORIDE 20 MEQ TAB.PRT.SR PO ONE (13:45)
[2021-01-28 15:22] VITALS: BP_SYST 113
[2021-01-28] MEDS: HYDROCORTISONE 2.5%, 30 GM TOPICAL CREAM TP SCH (21:00)
[2021-01-28] MEDS: LIDOCAINE TOPICAL OINT 5%, 35 GM TP PRN (21:59)
[2021-01-28 23:04] VITALS: BP_SYST 132
[2021-01-29] MEDS: HYDROmorphone 2 MG TAB PO PRN ×2 (01:44→15:38)
[2021-01-29 02:13] VITALS: BP_SYST 121
[2021-01-29] MEDS: LIDOCAINE TOPICAL OINT 5%, 35 GM TP PRN ×3 (05:27→21:55)
[2021-01-29] MEDS: LEVOTHYROXINE SODIUM 0.025 MG TABLET PO SCH (06:16)
[2021-01-29] MEDS: NORMAL SALINE 5 ML DISP.SYRIN IVF SCH ×3 (06:17→21:58)
[2021-01-29 06:55] LABS: BASOPHILS # (AUTO) 0.1 K/uL (0.0-0.2); BASOPHILS % (AUTO) 0.9 % (0.0-2.0); EOSINOPHILS # (AUTO) 0.2 K/uL (0.0-0.4); EOSINOPHILS % (AUTO) 1.1 % (0.0-4.0); HEMATOCRIT 37.5 % (36-48); HEMOGLOBIN 12.9 g/dL (12.0-16.0); LYMPHOCYTES # (AUTO) 2.8 K/uL (1.0-5.5); LYMPHOCYTES % (AUTO) 19.3 % (20.5-51.5); MEAN CORPUSCULAR HEMOGLOBIN 33 pg (27-31); MEAN CORPUSCULAR HGB CONC 35 % (32-36); MEAN CORPUSCULAR VOLUME 97 fL (79.0-98.0); MONOCYTES # (AUTO) 1.2 K/uL (0.0-1.0); NEUTROPHILS # (AUTO) 10.2 K/uL (1.8-7.7); NEUTROPHILS % (AUTO) 70.7 % (40.0-70.0); PLATELET COUNT (AUTO) 736 K/uL (130-430); RED BLOOD CELL COUNT(AUTO) 3.87 MIL/uL (4.2-6.2); WHITE BLOOD COUNT (AUTO) 14.4 K/uL (4.8-10.8)
[2021-01-29 07:10] LABS: CALCIUM 9.7 mg/dL (8.4-11.0); CREATININE 0.67 mg/dL (0.55-1.30); POTASSIUM 3.1 mmol/L (3.5-5.1)
[2021-01-29] MEDS: MULTIVITAMINS TAB 1 TABLET PO SCH (08:37)
[2021-01-29] MEDS: HYDROCORTISONE ACETATE 1 SUPP (ANUSOL HC) RC SCH ×2 (08:37→21:51)
[2021-01-29] MEDS: SENNOSIDES/DOCUSATE SODIUM 1 TAB TABLET(SENOKOT-S) PO SCH (08:37)
[2021-01-29] MEDS: ASPIRIN 81 MG TAB.CHEW PO SCH (08:37)
[2021-01-29] MEDS: MAGNESIUM OXIDE 400 MG TABLET PO SCH (08:37)
[2021-01-29] MEDS: TOPIRAMATE 100 MG TABLET(Topamax) PO SCH (08:38)
[2021-01-29] MEDS: DOCUSATE SODIUM 100 MG CAPSULE PO SCH (08:38)
[2021-01-29] MEDS: LORazepam 2 MG/ML VIAL IVP PRN ×3 (08:39→22:37)
[2021-01-29] MEDS: HYDROCHLOROTHIAZIDE 25 MG TABLET (HCTZ) PO SCH (08:39)
[2021-01-29] MEDS: PSYLLIUM HUSK 1 PKT PACKET PO SCH ×4 (08:53→21:51)
[2021-01-29 09:10] VITALS: BP_SYST 96
[2021-01-29] MEDS: PHENYLEPH/MINERAL OIL/PETROLAT 57 GM OINT.APPL TP SCH ×2 (09:36→21:50)
[2021-01-29 12:01] VITALS: BP_SYST 118
[2021-01-29] MEDS ORDERED: CITALOPRAM HYDROBROMIDE 20 MG TABLET PO ONE (13:45)
[2021-01-29 19:30] VITALS: BP_SYST 138
[2021-01-29] MEDS: HYDROCORTISONE 2.5%, 30 GM TOPICAL CREAM TP SCH (21:00)
[2021-01-29] MEDS: WITCH HAZEL LEAF 1 MED.PAD MED.PAD TP PRN (22:36)
[2021-01-30] VITALS: BP_SYST 132
[2021-01-30] MEDS: LORazepam 2 MG/ML VIAL IVP PRN ×3 (05:07→22:38)
[2021-01-30] MEDS: NORMAL SALINE 5 ML DISP.SYRIN IVF SCH ×3 (05:08→22:33)
[2021-01-30] MEDS: LEVOTHYROXINE SODIUM 0.025 MG TABLET PO SCH (06:05)
[2021-01-30 07:08] LABS: BASOPHILS # (AUTO) 0.1 K/uL (0.0-0.2); EOSINOPHILS # (AUTO) 0.1 K/uL (0.0-0.4); EOSINOPHILS % (AUTO) 1.1 % (0.0-4.0); HEMOGLOBIN 12.3 g/dL (12.0-16.0); LYMPHOCYTES % (AUTO) 14.7 % (20.5-51.5); MEAN CORPUSCULAR HEMOGLOBIN 33 pg (27-31); MEAN CORPUSCULAR HGB CONC 34 % (32-36); MEAN CORPUSCULAR VOLUME 97 fL (79.0-98.0); MONOCYTES % (AUTO) 7.4 % (1.7-9.3); NEUTROPHILS # (AUTO) 10.1 K/uL (1.8-7.7); NEUTROPHILS % (AUTO) 75.8 % (40.0-70.0); PLATELET COUNT (AUTO) 706 K/uL (130-430); RED BLOOD CELL COUNT(AUTO) 3.71 MIL/uL (4.2-6.2); RED CELL DISTRIBUTION WIDTH 14.5 % (9.0-15.0); WHITE BLOOD COUNT (AUTO) 13.3 K/uL (4.8-10.8)
[2021-01-30 07:40] LABS: CALCIUM 9.5 mg/dL (8.4-11.0); CREATININE 0.71 mg/dL (0.55-1.30); POTASSIUM 3.6 mmol/L (3.5-5.1); TOTAL BILIRUBIN 0.3 mg/dL (0.0-1.0)
[2021-01-30 08:00] VITALS: BP_SYST 133
[2021-01-30 08:59] LABS: ERYTHROCYTE SEDIMENTATION RATE 58 MM/HR (0-20)
[2021-01-30] MEDS: PHENYLEPH/MINERAL OIL/PETROLAT 57 GM OINT.APPL TP SCH ×2 (09:00→22:32)
[2021-01-30] MEDS: SENNOSIDES/DOCUSATE SODIUM 1 TAB TABLET(SENOKOT-S) PO SCH (09:37)
[2021-01-30] MEDS: HYDROCORTISONE ACETATE 1 SUPP (ANUSOL HC) RC SCH ×2 (09:37→22:32)
[2021-01-30] MEDS: CITALOPRAM HYDROBROMIDE 20 MG TABLET PO SCH (09:38)
[2021-01-30] MEDS: ASPIRIN 81 MG TAB.CHEW PO SCH (09:38)
[2021-01-30] MEDS: HYDROCHLOROTHIAZIDE 25 MG TABLET (HCTZ) PO SCH (09:38)
[2021-01-30] MEDS: MULTIVITAMINS TAB 1 TABLET PO SCH (09:39)
[2021-01-30] MEDS: MAGNESIUM OXIDE 400 MG TABLET PO SCH (09:39)
[2021-01-30] MEDS: TOPIRAMATE 100 MG TABLET(Topamax) PO SCH (09:39)
[2021-01-30] MEDS: DOCUSATE SODIUM 100 MG CAPSULE PO SCH (09:39)
[2021-01-30] MEDS: LIDOCAINE TOPICAL OINT 5%, 35 GM TP PRN ×3 (09:39→22:32)
[2021-01-30] MEDS: HYDROmorphone 2 MG TAB PO PRN ×2 (10:12→17:17)
[2021-01-30 10:28] LABS: C-REACTIVE PROTEIN QUANT 1.8 mg/dL (0-0.5)
[2021-01-30 12:26] VITALS: BP_SYST 113
[2021-01-30] MEDS: PSYLLIUM HUSK 1 PKT PACKET PO SCH ×3 (15:00→23:02)
[2021-01-30 18:34] VITALS: BP_SYST 118
[2021-01-30 19:25] VITALS: BP_SYST 117
[2021-01-30] MEDS: HYDROCORTISONE 2.5%, 30 GM TOPICAL CREAM TP SCH (22:33)
[2021-01-31] VITALS: BP_SYST 121
[2021-01-31] MEDS: HYDROmorphone 2 MG TAB PO PRN ×2 (00:35→09:30)
[2021-01-31] MEDS: LEVOTHYROXINE SODIUM 0.025 MG TABLET PO SCH (06:50)
[2021-01-31] MEDS: NORMAL SALINE 5 ML DISP.SYRIN IVF SCH ×2 (06:52→14:00)
[2021-01-31] MEDS: LORazepam 2 MG/ML VIAL IVP PRN (07:05)
[2021-01-31 08:00] VITALS: BP_SYST 127
[2021-01-31] MEDS ORDERED: HYDR-3917 PO (08:52)
[2021-01-31] MEDS ORDERED: LEVO500T89 PO (08:52)
[2021-01-31] MEDS: ASPIRIN 81 MG TAB.CHEW PO SCH (09:00)
[2021-01-31] MEDS: PHENYLEPH/MINERAL OIL/PETROLAT 57 GM OINT.APPL TP SCH (09:23)
[2021-01-31] MEDS: SENNOSIDES/DOCUSATE SODIUM 1 TAB TABLET(SENOKOT-S) PO SCH (09:25)
[2021-01-31] MEDS: TOPIRAMATE 100 MG TABLET(Topamax) PO SCH (09:25)
[2021-01-31] MEDS: CITALOPRAM HYDROBROMIDE 20 MG TABLET PO SCH (09:26)
[2021-01-31] MEDS: HYDROCORTISONE ACETATE 1 SUPP (ANUSOL HC) RC SCH (09:26)
[2021-01-31] MEDS: HYDROCHLOROTHIAZIDE 25 MG TABLET (HCTZ) PO SCH (09:26)
[2021-01-31] MEDS: DOCUSATE SODIUM 100 MG CAPSULE PO SCH (09:27)
[2021-01-31] MEDS: MULTIVITAMINS TAB 1 TABLET PO SCH (09:28)
[2021-01-31] MEDS: MAGNESIUM OXIDE 400 MG TABLET PO SCH (09:29)
[2021-01-31] MEDS: PSYLLIUM HUSK 1 PKT PACKET PO SCH ×2 (09:40→15:00)
[2021-01-31 09:42] LABS: BASOPHILS # (AUTO) 0.2 K/uL (0.0-0.2); BASOPHILS % (AUTO) 1.4 % (0.0-2.0); EOSINOPHILS # (AUTO) 0.2 K/uL (0.0-0.4); EOSINOPHILS % (AUTO) 1.8 % (0.0-4.0); HEMATOCRIT 38.4 % (36-48); HEMOGLOBIN 12.6 g/dL (12.0-16.0); LYMPHOCYTES # (AUTO) 2.5 K/uL (1.0-5.5); LYMPHOCYTES % (AUTO) 22.7 % (20.5-51.5); MEAN CORPUSCULAR HEMOGLOBIN 32 pg (27-31); MEAN CORPUSCULAR HGB CONC 33 % (32-36); MEAN CORPUSCULAR VOLUME 98 fL (79.0-98.0); MONOCYTES # (AUTO) 0.8 K/uL (0.0-1.0); MONOCYTES % (AUTO) 7.1 % (1.7-9.3); NEUTROPHILS # (AUTO) 7.3 K/uL (1.8-7.7); RED BLOOD CELL COUNT(AUTO) 3.94 MIL/uL (4.2-6.2); RED CELL DISTRIBUTION WIDTH 14.8 % (9.0-15.0); WHITE BLOOD COUNT (AUTO) 10.9 K/uL (4.8-10.8)
[2021-01-31 09:59] LABS: CALCIUM 9.5 mg/dL (8.4-11.0); CREATININE 0.68 mg/dL (0.55-1.30); POTASSIUM 3.1 mmol/L (3.5-5.1)
[2021-01-31 10:17] LABS: PLATELET COUNT (AUTO) 770 K/uL (130-430)
[2021-01-31 12:00] VITALS: BP_SYST 126
[2021-01-31 17:04] VITALS: BP_SYST 130
== END 2021-01-31 20:30 | DRG 854 ==
LOC: SED 11:18 → SMU 12:57
PROVIDERS: ADMIT Preventive Medicine Preventive Medicine/Occupational Environmental Medicine; ATTEND Preventive Medicine Preventive Medicine/Occupational Environmental Medicine
PROC: 0DQQ0ZZ Repair Anus, Open Approach (ICD-10-PCS; 2021-01-26)
PROC: 06BY0ZC Excision of Hemorrhoidal Plexus, Open Approach (ICD-10-PCS; principal; 2021-01-26 12:00)
DX: A41.9 Sepsis, unspecified organism (principal); K80.10 Calculus of gallbladder with chronic cholecystitis without obstruction; N12 Tubulo-interstitial nephritis, not specified as acute or chronic; E87.6 Hypokalemia; K64.9 Unspecified hemorrhoids; R73.9 Hyperglycemia, unspecified; I10 Essential (primary) hypertension; E88.09 Other disorders of plasma-protein metabolism, not elsewhere classified; D75.839 Thrombocytosis, unspecified; B96.20 Unspecified Escherichia coli [E. coli] as the cause of diseases classified elsewhere; K64.8 Other hemorrhoids; K57.90 Diverticulosis of intestine, part unspecified, without perforation or abscess without bleeding; N20.0 Calculus of kidney; K64.4 Residual hemorrhoidal skin tags; K59.00 Constipation, unspecified; I95.9 Hypotension, unspecified; Z20.822 Contact with and (suspected) exposure to COVID-19; K62.4 Stenosis of anus and rectum; K64.5 Perianal venous thrombosis; Z79.82 Long term (current) use of aspirin; Z79.899 Other long term (current) drug therapy
CPT/HCPCS: 36415; 71045; 76376; 80048; 80053; 81000; 81003; 82150; 83690; 83735; 84100; 84703; 85025; 85610-TC; 85651-TC; 85730-TC; 86140; 86886; 86900; 86901; 87040-TC; 87081; 87086; 88304; 93005; 96365; 96367; 96375; 99285; C9399; J0696; J1100; J1170; J2001; J2060; J2250; J2270; J2405; J2704; J3010; J3465; J3480; J3490; J7050; J7060; J7120

== ENCOUNTER 2021-03-05 10:58 | Outpatient (CLI) | payer OTHER, MEDICAID ==
[~2021-03-05 10:58] MED LIST: ANURH RC; ASCO-420 PO; ASPI-1155 PO; CETI10CA PO; CHOL200075 PO; DOCU-144 PO; FLUT30CR; HYDC2.5% TP; HYDR-3927 PO; HYDR25TA4 PO; HYDR2TAB7 PO; LEVO25TA7 PO; LEVO500T89 PO; LIDOINT TP; MAGN400T10 PO; MEDI473O PO; MULT-1089 PO; PHEN57OI23 TP; PRAVASTATIN 20 MG PO; PSYL3.4P5 PO; TOPI200T PO; UBID400C6 PO; [UNRECOGNIZED DRUG - CODE] PO
== END 2021-03-05 21:06 | disposition home or self-care (01) ==
LOC: SUS 10:58
PROVIDERS: ATTEND Internal Medicine
DX: N83.8 Other noninflammatory disorders of ovary, fallopian tube and broad ligament (principal); M16.12 Unilateral primary osteoarthritis, left hip; M25.552 Pain in left hip; R10.2 Pelvic and perineal pain
CPT/HCPCS: 73502; 76830-TC; 76857

== ENCOUNTER 2021-03-09 10:26 | Outpatient (CLI) | payer OTHER, MEDICAID | END 2021-03-09 21:27 | disposition home or self-care (01) | LOC: SUS 10:26 | PROVIDERS: ATTEND Urology | DX: N28.1 Cyst of kidney, acquired (principal); I70.0 Atherosclerosis of aorta; R10.9 Unspecified abdominal pain; N28.89 Other specified disorders of kidney and ureter | CPT/HCPCS: 76700-TC ==

== ENCOUNTER 2021-07-07 09:30 | Day surgery (SDC) | payer MEDICARE, MEDICAID, SELFPAY ==
[~2021-07-07] VITALS: Ht 152.4 cm; Wt 45.4 kg
[~2021-07-07 09:30] MED LIST changes: -LEVO500T89 PO; +LEVO500T90 PO
[2021-07-07] MEDS ORDERED: PHENYLEPHRINE HCL 10 MG/ML VIAL (NEOSYNEPHRINE) ONE (11:54)
[2021-07-07] MEDS ORDERED: NS IRRIG SOLN 1000 ML IR ONE (11:54)
[2021-07-07] MEDS ORDERED: SEVOFLURANE 15 MIN GAS INH ONE (11:54)
[2021-07-07] MEDS ORDERED: ONDANSETRON HCL 4 MG/2 ML VIAL ONE (11:54)
[2021-07-07] MEDS ORDERED: fentaNYL CITRATE 250 MCG/5 ML AMP ONE (11:54)
[2021-07-07] MEDS ORDERED: ROCURONIUM BROMIDE 10 MG/ML (ZEMURON) ONE (11:54)
[2021-07-07] MEDS ORDERED: METOCLOPRAMIDE HCL 10 MG/2 ML VIAL ONE (11:54)
[2021-07-07] MEDS ORDERED: PROPOFOL 200MG/ 20ML VIAL (DIPRIVAN) IV ONE (11:54)
[2021-07-07] MEDS ORDERED: GLYCOPYRROLATE 0.2 MG/ML VIAL ONE (11:54)
[2021-07-07] MEDS ORDERED: CEFAZOLIN 1 GM IVPB PREMIX 50 ML IV ONE (11:54)
[2021-07-07] MEDS ORDERED: MIDAZOLAM HCL 5 MG/5 ML VIAL ONE (11:54)
[2021-07-07] MEDS ORDERED: SUCCINYLCHOLINE CHLORIDE 20 MG/ML(QUELICIN) ONE (11:54)
[2021-07-07] MEDS ORDERED: LR 1,000 ML IV.SOLN IV ONE (11:54)
[2021-07-07] MEDS ORDERED: OXYCODONE/ACETAMINOPHEN 5-325 TABLET ONE (14:44)
[2021-07-07] MEDS ORDERED: OXYCODONE/ACETAMINOPHEN 5-325 TABLET PO ONE (14:45)
[2021-07-07] MEDS ORDERED: ONDANSETRON HCL 4 MG/2 ML VIAL IVP PRN (15:15)
[2021-07-07] MEDS ORDERED: LR 1,000 ML IV SCH (15:15)
[2021-07-07] MEDS ORDERED: KETOROLAC TROMETHAMINE 30 MG VIAL IVP PRN (15:15)
[2021-07-07 17:39] VITALS: BP_SYST 99
== END 2021-07-07 17:10 | disposition home or self-care (01) ==
LOC: SDS 09:30 → SMU 09:30 → SDS 17:10
PROVIDERS: ATTEND Obstetrics & Gynecology
DX: N83.202 Unspecified ovarian cyst, left side (principal); M79.7 Fibromyalgia; M81.0 Age-related osteoporosis without current pathological fracture; Z79.899 Other long term (current) drug therapy; Z20.822 Contact with and (suspected) exposure to COVID-19
CPT/HCPCS: 36415; 58661; 71046; 86886; 86900; 86901; 87426; 88305; 93005; C1727; J0330; J0690; J2250; J2370; J2405; J2704; J2765; J3010; J3490; J7120; U0003

== ENCOUNTER 2022-03-04 00:17 | Emergency (ER) | payer MEDICARE, MEDICAID ==
[~2022-03-04] VITALS: Ht 154.9 cm; Wt 63.5 kg
[~2022-03-04 00:17] MED LIST changes: +LEVO-62 PO; -LEVO500T90 PO; -UBID400C6 PO; +UBID400C8 PO
[2022-03-04 00:21] VITALS: BP_SYST 123
[2022-03-04] MEDS ORDERED: FOLIC ACID 1 MG, THIAMINE HCL 100 MG, MAGNESIUM SULFATE 1 GM, MVI 10 ML in NACL 0.9% 1,... IV ONE (00:45)
[2022-03-04] MEDS ORDERED: FOLIC ACID 5 MG/ML VIAL IV ONE (01:08)
[2022-03-04] MEDS ORDERED: MAGNESIUM SULFATE 1 GM/2 ML VIAL ONE (01:08)
[2022-03-04] MEDS ORDERED: THIAMINE HCL 100 MG/ML VIAL ONE (01:08)
[2022-03-04] MEDS ORDERED: MVI 10 ML VIAL IV ONE (01:32)
[2022-03-04 01:42] LABS: ANION GAP 7 (5-15); CALCIUM 9.7 mg/dL (8.4-11.0); CHLORIDE 99 mmol/L (98-107); CREATININE 0.83 mg/dL (0.55-1.30); GLUCOSE 102 mg/dL (70-99); UREA NITROGEN, BLOOD 14 mg/dL (8-21)
[2022-03-04] MEDS ORDERED: KCL 40 mEq in 100 mL (PREMIX) 100 ML IV ONE (01:45)
[2022-03-04] MEDS ORDERED: POTASSIUM CHLORIDE 20 MEQ/PKT PACKET PO ONE (01:45)
[2022-03-04 01:46] LABS: GFR AFRICAN AMERICAN 89 mL/min (>90)
[2022-03-04 01:57] LABS: ALANINE AMINOTRANSFERASE 163 U/L (12-78); ALBUMIN 4.3 g/dL (3.4-4.8); ALCOHOL, BLOOD 371 mg/dL (<10); ASPARTATE AMINOTRANSFERASE 222 U/L (10-37); TOTAL BILIRUBIN 0.1 mg/dL (0.0-1.0)
[2022-03-04 01:58] LABS: ACETAMINOPHEN < 1 ug/mL (1-30)
[2022-03-04 02:25] LABS: BASOPHILS # (AUTO) 0.1 K/uL (0.0-0.2); EOSINOPHILS # (AUTO) 0.1 K/uL (0.0-0.4); EOSINOPHILS % (AUTO) 1.8 % (0.0-4.0); HEMATOCRIT 43.8 % (36-48); HEMOGLOBIN 15.1 g/dL (12.0-16.0); LYMPHOCYTES % (AUTO) 44.9 % (20.5-51.5); MEAN CORPUSCULAR HEMOGLOBIN 36 pg (27-31); MEAN CORPUSCULAR HGB CONC 35 % (32-36); MEAN CORPUSCULAR VOLUME 104 fL (79.0-98.0); MONOCYTES # (AUTO) 0.7 K/uL (0.0-1.0); MONOCYTES % (AUTO) 14.6 % (1.7-9.3); NEUTROPHILS # (AUTO) 1.6 K/uL (1.8-7.7); NEUTROPHILS % (AUTO) 35.7 % (40.0-70.0); PLATELET COUNT (AUTO) 232 K/uL (130-430); RED BLOOD CELL COUNT(AUTO) 4.22 MIL/uL (4.2-6.2); RED CELL DISTRIBUTION WIDTH 17.4 % (9.0-15.0); WHITE BLOOD COUNT (AUTO) 4.5 K/uL (4.8-10.8)
[2022-03-04] MEDS ORDERED: KCL 20 mEq in 100 mL (PREMIX) 200 ML IV ONE (02:26)
[2022-03-04] MEDS ORDERED: POTA-197 PO (04:11)
[2022-03-04 08:03] VITALS: BP_SYST 123
== END 2022-03-04 07:45 | disposition home or self-care (01) ==
LOC: SED 00:17
DX: F10.129 Alcohol abuse with intoxication, unspecified (principal); R74.01 Elevation of levels of liver transaminase levels; I10 Essential (primary) hypertension; R41.82 Altered mental status, unspecified; Z79.899 Other long term (current) drug therapy; Y90.6 Blood alcohol level of 120-199 mg/100 ml
CPT/HCPCS: 99284; 96365; 80053; 85025; 36415; 96368; G0482; J3490; J3475; J3480; J3411; J7030; G0480; G0481

== ENCOUNTER 2022-03-10 23:25 | Emergency (ER) | payer MEDICARE, MEDICAID ==
[~2022-03-10] VITALS: Ht 154.9 cm; Wt 63.5 kg
[~2022-03-10 23:25] MED LIST changes: +POTA-197 PO
[2022-03-10 23:43] VITALS: BP_SYST 136
--- NOTE | 2022-03-10 23:43 | NUR ---
Pt BIB BLS, placed to ER bed 02. Pt report given to ADRIANA Quintanilla.
--- NOTE | 2022-03-10 23:58 | NUR ---
Dr. Crenshaw at bedside for evaluation.
[2022-03-11] MEDS ORDERED: KETOROLAC TROMETHAMINE 60 MG/2 ML VIAL IM ONE (00:15)
--- NOTE | 2022-03-11 02:00 | NUR ---
No change from previous assessment.
--- NOTE | 2022-03-11 03:50 | NUR ---
Dr. Crenshaw at bedside discussing Tx plan and will discharge patient home.
--- NOTE | 2022-03-11 04:00 | NUR ---
No change from previous assessment.
--- NOTE | 2022-03-11 07:10 | NUR ---
Care endorsed to ADRIANA Rossi.
[2022-03-11 08:35] VITALS: BP_SYST 100
== END 2022-03-11 03:45 | disposition home or self-care (01) ==
LOC: SED 23:25
DX: F10.129 Alcohol abuse with intoxication, unspecified (principal); F41.9 Anxiety disorder, unspecified; I10 Essential (primary) hypertension; Z79.899 Other long term (current) drug therapy; Y90.6 Blood alcohol level of 120-199 mg/100 ml
CPT/HCPCS: 99283; 96372; J1885

== ENCOUNTER 2022-06-26 16:05 | Emergency (ER) | payer MEDICARE, MEDICAID ==
[~2022-06-26] VITALS: Ht 160 cm; Wt 59.0 kg
[2022-06-26 16:23] VITALS: BP_SYST 162
[2022-06-26] MEDS ORDERED: ONDANSETRON 4 MG ODT TAB PO ONE ×2 (16:45→20:15)
[2022-06-26 17:06] LABS: BASOPHILS # (AUTO) 0.1 K/uL (0.0-0.2); BASOPHILS % (AUTO) 1.4 % (0.0-2.0); EOSINOPHILS # (AUTO) 0.1 K/uL (0.0-0.4); EOSINOPHILS % (AUTO) 1.2 % (0.0-4.0); HEMATOCRIT 44.7 % (36-48); HEMOGLOBIN 15.4 g/dL (12.0-16.0); LYMPHOCYTES # (AUTO) 2.8 K/uL (1.0-5.5); LYMPHOCYTES % (AUTO) 36.7 % (20.5-51.5); MEAN CORPUSCULAR HEMOGLOBIN 35 pg (27-31); MEAN CORPUSCULAR HGB CONC 35 % (32-36); MEAN CORPUSCULAR VOLUME 102 fL (79.0-98.0); MONOCYTES # (AUTO) 0.6 K/uL (0.0-1.0); MONOCYTES % (AUTO) 7.3 % (1.7-9.3); NEUTROPHILS # (AUTO) 4.1 K/uL (1.8-7.7); NEUTROPHILS % (AUTO) 53.4 % (40.0-70.0); PLATELET COUNT (AUTO) 310 K/uL (130-430); RED BLOOD CELL COUNT(AUTO) 4.37 MIL/uL (4.2-6.2); RED CELL DISTRIBUTION WIDTH 13.7 % (9.0-15.0); WHITE BLOOD COUNT (AUTO) 7.7 K/uL (4.8-10.8)
[2022-06-26 17:16] LABS: CREATININE 0.82 mg/dL (0.55-1.30)
[2022-06-26 17:20] LABS: ALBUMIN 4.3 g/dL (3.4-4.8); TOTAL BILIRUBIN 0.2 mg/dL (0.0-1.0)
[2022-06-26] MEDS ORDERED: THIAMINE HCL 100 MG TABLET PO SCH (20:00)
[2022-06-26] MEDS ORDERED: THIAMINE HCL 100 MG TABLET ONE (20:14)
[2022-06-26 21:25] VITALS: BP_SYST 95
[2022-06-26] MEDS ORDERED: NACL 0.9% 1,000 ML IV ONE (21:30)
== END 2022-06-26 23:55 | disposition home or self-care (01) ==
LOC: SED 16:05
DX: F10.129 Alcohol abuse with intoxication, unspecified (principal); R11.10 Vomiting, unspecified; I10 Essential (primary) hypertension; F17.200 Nicotine dependence, unspecified, uncomplicated; Z88.8 Allergy status to other drugs, medicaments and biological substances; Z79.899 Other long term (current) drug therapy; Y90.6 Blood alcohol level of 120-199 mg/100 ml
CPT/HCPCS: 99283; 80053; 85025; 36415; G0482; Q0162

== ENCOUNTER 2023-07-02 20:02 | Emergency (ER) | payer BC, MEDICAID ==
[~2023-07-02] VITALS: Ht 154.9 cm; Wt 54.9 kg
[2023-07-02 20:07] VITALS: BP_SYST 142; PULSE 84; RESP 20; TEMP 97.7; O2SAT 96
[2023-07-02 21:23] LABS: BASOPHILS # (AUTO) 0.1 K/uL (0.0-0.2); BASOPHILS % (AUTO) 1.4 % (0.0-2.0); EOSINOPHILS # (AUTO) 0.1 K/uL (0.0-0.4); EOSINOPHILS % (AUTO) 2.1 % (0.0-4.0); HEMATOCRIT 42.4 % (36-48); HEMOGLOBIN 14.6 g/dL (12.0-16.0); LYMPHOCYTES # (AUTO) 2.7 K/uL (1.0-5.5); LYMPHOCYTES % (AUTO) 53.8 % (20.5-51.5); MEAN CORPUSCULAR HEMOGLOBIN 33 pg (27-31); MEAN CORPUSCULAR HGB CONC 34 % (32-36); MEAN CORPUSCULAR VOLUME 97 fL (79.0-98.0); MONOCYTES # (AUTO) 0.4 K/uL (0.0-1.0); MONOCYTES % (AUTO) 8.3 % (1.7-9.3); NEUTROPHILS # (AUTO) 1.7 K/uL (1.8-7.7); NEUTROPHILS % (AUTO) 34.4 % (40.0-70.0); PLATELET COUNT (AUTO) 317 K/uL (130-430); RED BLOOD CELL COUNT(AUTO) 4.36 MIL/uL (4.2-6.2); RED CELL DISTRIBUTION WIDTH 13.5 % (9.0-15.0); WHITE BLOOD COUNT (AUTO) 5.1 K/uL (4.8-10.8)
[2023-07-02 21:27] LABS: ALBUMIN 3.9 g/dL (3.4-4.8); BILIRUBIN,DIRECT 0.1 mg/dL (0.0-0.3); CALCIUM 8.6 mg/dL (8.4-11.0); CREATININE 0.83 mg/dL (0.55-1.30); TOTAL BILIRUBIN 0.2 mg/dL (0.0-1.0); TOTAL PROTEIN, SERUM 7.3 g/dL (6.4-8.3)
[2023-07-02 21:30] LABS: POTASSIUM 2.7 mmol/L (3.5-5.1)
[2023-07-02] MEDS: POTASSIUM CHLORIDE 20 MEQ TABLET.ER PO ONE (21:39)
[2023-07-02 21:55] VITALS: BP_SYST 156; PULSE 67; RESP 16; TEMP 98.4; O2SAT 96
== END 2023-07-02 22:54 | disposition home or self-care (01) ==
LOC: SED 20:02
DX: F10.129 Alcohol abuse with intoxication, unspecified (principal); I10 Essential (primary) hypertension; E87.6 Hypokalemia; Z79.899 Other long term (current) drug therapy; Y90.6 Blood alcohol level of 120-199 mg/100 ml
CPT/HCPCS: 99283; 80076; 80048; 82140; 83690; 85025; 36415; G0482

== ENCOUNTER 2023-12-08 17:30 | Emergency (ER) | payer BC, MEDICAID ==
[~2023-12-08] VITALS: Ht 154.9 cm; Wt 46.3 kg
[~2023-12-08 17:30] MED LIST changes: +SENN-307 PO; -[UNRECOGNIZED DRUG - CODE] PO
[2023-12-08 17:42] VITALS: BP_SYST 132; PULSE 82; RESP 18; TEMP 98.3; O2SAT 95
[2023-12-08 20:01] LABS: BILIRUBIN,URINE NEGATIVE (NEGATIVE); BLOOD, URINE NEGATIVE (NEGATIVE); CLARITY/URINE SL CLOUDY (CLEAR); COLOR,URINE YELLOW (YELLOW); GLUCOSE,URINE NEGATIVE (NEGATIVE); KETONES,URINE NEGATIVE (NEGATIVE); LEUKOCYTE ESTERASE ,URINE NEGATIVE (NEGATIVE); NITRITE, URINE NEGATIVE (NEGATIVE); PROTEIN URINE NEGATIVE (NEGATIVE); UROBILINOGEN,URINE 0.2 (0.2-1.0)
[2023-12-08 20:09] LABS: BASOPHILS # (AUTO) 0.1 K/uL (0.0-0.2); BASOPHILS % (AUTO) 1.1 % (0.0-2.0); EOSINOPHILS # (AUTO) 0.2 K/uL (0.0-0.4); EOSINOPHILS % (AUTO) 2.8 % (0.0-4.0); HEMATOCRIT 40.4 % (36-48); HEMOGLOBIN 14.1 g/dL (12.0-16.0); LYMPHOCYTES # (AUTO) 1.5 K/uL (1.0-5.5); LYMPHOCYTES % (AUTO) 19.3 % (20.5-51.5); MEAN CORPUSCULAR HEMOGLOBIN 33 pg (27-31); MEAN CORPUSCULAR HGB CONC 35 % (32-36); MEAN CORPUSCULAR VOLUME 94 fL (79.0-98.0); MONOCYTES # (AUTO) 0.7 K/uL (0.0-1.0); MONOCYTES % (AUTO) 9.1 % (1.7-9.3); NEUTROPHILS # (AUTO) 5.2 K/uL (1.8-7.7); NEUTROPHILS % (AUTO) 67.7 % (40.0-70.0); PLATELET COUNT (AUTO) 328 K/uL (130-430); RED BLOOD CELL COUNT(AUTO) 4.31 MIL/uL (4.2-6.2); RED CELL DISTRIBUTION WIDTH 14.2 % (9.0-15.0); WHITE BLOOD COUNT (AUTO) 7.7 K/uL (4.8-10.8)
[2023-12-08] MEDS: ONDANSETRON HCL 4 MG/2 ML VIAL IVP ONE (20:23)
[2023-12-08] MEDS: KETOROLAC TROMETHAMINE 30 MG VIAL IVP ONE (20:32)
[2023-12-08] MEDS: NACL 0.9% 1,000 ML IV ONE (20:38)
[2023-12-08] MEDS: MORPHINE 4 MG INJ. 4 MG/ML VIAL IVP ONE (20:50)
[2023-12-08 20:53] LABS: ALBUMIN 4.1 g/dL (3.4-4.8); BILIRUBIN,DIRECT 0.1 mg/dL (0.0-0.3); CALCIUM 9.5 mg/dL (8.4-11.0); CREATININE 0.76 mg/dL (0.55-1.30); TOTAL BILIRUBIN 0.4 mg/dL (0.0-1.0); TOTAL PROTEIN, SERUM 7.4 g/dL (6.4-8.3)
[2023-12-08 20:55] LABS: POTASSIUM 2.5 mmol/L (3.5-5.1)
[2023-12-08] MEDS: POTASSIUM CHLORIDE 20 MEQ/PKT PACKET PO ONE (21:35)
[2023-12-08] MEDS: POTASSIUM CHLORIDE 20 MEQ TABLET.ER PO ONE (22:12)
== END 2023-12-08 21:38 | disposition home or self-care (01) ==
LOC: SED 17:30
DX: R10.31 Right lower quadrant pain (principal); R10.32 Left lower quadrant pain; I10 Essential (primary) hypertension; Z90.49 Acquired absence of other specified parts of digestive tract; Z88.8 Allergy status to other drugs, medicaments and biological substances; Z79.899 Other long term (current) drug therapy; Z79.2 Long term (current) use of antibiotics; Z79.82 Long term (current) use of aspirin
CPT/HCPCS: 99285; 74176; 96374; 96361; 96375; 80076; 80048; 81001; 83690; 85025; 36415; 81003; J2405; J2270; J7030; J1885